=== PATIENT | male | born 1990 | race African-American/Black ===

== ENCOUNTER 2020-04-01 11:05 | Inpatient (IN) | payer SELFPAY ==
[2020-04-01] MEDS ORDERED: Adacel (T-DAP) 0.5 ML SYRINGE ONE (11:26)
[2020-04-01] MEDS ORDERED: Tranexamic Acid 1,000 MG/10 ML VIAL ONE (11:26)
[2020-04-01] MEDS ORDERED: Lidocaine 1% w/Epinephrine 1:100K 20 ML VIAL ONE ×2 (11:26→12:21)
[2020-04-01] MEDS ORDERED: Fentanyl 100 MCG/2 ML VIAL ONE (11:27)
[2020-04-01 11:30] LABS: INR-International Normal Ratio 1.1; PTT 26.5 sec (22.9-36.1); Prothrombin Time 14.1 sec (12.0-14.7)
[2020-04-01 11:33] LABS: Hemoglobin 11.5 g/dL (14.0-18.0); Mean Corpuscular HGB CONC 31.8 g/dL (32.0-36.0); Mean Corpuscular Hemoglobin 27.5 pg (27.0-31.0); Mean Corpuscular Volume 86.4 fL (78.0-98.0); Platelet Count 272 thou/uL (130-400); RBC Distribution Width 13.2 % (11.5-14.5); Red Blood Cell (RBC) Count 4.17 mill/uL (4.70-6.10); White Blood Cell (WBC) Count 26.8 thou/uL (4.8-10.8)
[2020-04-01 11:41] LABS: ALT (SGPT) 7 U/L (8-55); AST (SGOT) 16 U/L (5-34); Albumin 3.4 g/dL (3.5-5.0); Alkaline Phosphatase 70 U/L (40-110); Anion Gap 9 mmol/L (10-20); BUN (Urea Nitrogen) 14 mg/dL (8.9-20.6); Bilirubin, Total 0.3 mg/dL (0.2-1.2); Calc. Creatinine Clearance 0 mL/min (70-130); Calcium 7.5 mg/dL (7.8-10.44); Carbon Dioxide 22 mmol/L (22-29); Chloride 108 mmol/L (98-107); Estimated GFR-MDRD Greater than 90; Globulin 2.4 g/dL (2.4-3.5); Lipase 42 U/L (8-78); Potassium 3.9 mmol/L (3.5-5.1); Protein, Total 5.8 g/dL (6.0-8.3); Sodium 135 mmol/L (136-145)
[2020-04-01 11:51] LABS: Band 10 % (5-11); Lymphocytes 13 % (21-51); MDiff Complete? YES; Monocytes 4 % (0-10); Neutrophil 73 % (42-75); Platelet Morphology Comment Appears Adequate; Polychromasia SLIGHT = 2-3 cells (100X) (0-2/hpf)
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
[2020-04-01 11:53] LABS: Glucose 239 mg/dL (70-105)
--- NOTE | 2020-04-01 11:53 | CT ---
EXAM: CT of the cervical spine without contrast HISTORY: Neck pain COMPARISON: None TECHNIQUE: Multiple contiguous axial images were obtained in a CT of the cervical spine without contr ast. Sagittal and coronal reformats were performed. FINDINGS: The vertebral bodies and intervertebral discs demonstrate normal height and alignment witho ut fracture or subluxation. No degenerative changes are present. No prevertebral soft tissue swelling is seen. The posterior facets are well aligned. Normal alignment of the skull base with the cervical spine is seen. The lung apices and cervical soft tissues are unremarkable. IMPRESSION: No evidence of acute osseous abnormality of the cervical spine.
[2020-04-01 11:57] LABS: Bacteria/HPF None Seen HPF (None Seen); Bilirubin Negative (Negative); Blood, Urine 1+ (Negative); Clarity Clear (Clear); Glucose, Urine (Dipstick) Normal (Negative); Leukocyte Negative Leu/uL (Negative); Nitrite Negative (Negative); Protein, Urine (Dipstick) 20 mg/dL (Neg-Trace); RBC/HPF 21-50 HPF (0-3); Squamous Epithelial None Seen HPF (0-3); Urobilinogen Normal mg/dL (Less than 2); WBC/HPF 0-3 HPF (0-3)
[2020-04-01] MEDS ORDERED: levETIRAcetam 1000 MG/100 ML PREMIX BAG ONE (11:57)
[2020-04-01] MEDS ORDERED: Morphine 4 MG/ML VIAL ONE ×2 (11:59→15:31)
[2020-04-01 12:06] LABS: Actual Bicarbonate (HCO3a) 21.4 mEq/L (22-28); Analyzer IN Cardio ER; Base Excess (BEa) -4.5 mEq/L (-2.0 to +3.0); CO2 Tension 42.2 mmHg (35.0-45.0); Calcium, Ionized (arterial) 1.11 mmol/L (1.12-1.30); Carboxyhemoglobin (COHb) 0.9 gm% (0.0-3.0); Hemoglobin (Hb) 12.4 g/dL (14.0-18.0); O2 Tension (PaO2), arterial 266.8 mmHg (80.0-100.0); Potassium - ABG Lab 3.91 mmol/L (3.70-5.30); Puncture Site RRA; pH, Arterial 7.32 (7.35-7.45)
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
[2020-04-01] MEDS ORDERED: Dextrose 50% Abboject 50 ML SYRINGE SLOW IVP PRN (12:12)
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
--- NOTE | 2020-04-01 12:30 | RAD ---
EXAM: 3 views of the right wrist HISTORY: Wrist pain COMPARISON: None FINDINGS: 3 views of the right wrist shows no evidence of acute fracture or dislocation. No soft tiss ue swelling is seen. No degenerative changes are present. IMPRESSION: No evidence of acute osseous abnormality.
[2020-04-01] MEDS ORDERED: Iopamidol-370 76% 500 ML 1 ML ONE (12:49)
[2020-04-01] MEDS ORDERED: Electrolyte Replacement Protoc 1 EACH EACH FS ONE (14:06)
[2020-04-01] MEDS ORDERED: PHOS-NAK 1 PKT PACK PO PRN ×2 (14:08)
[2020-04-01] MEDS ORDERED: Potassium Chloride 40 MEQ in Sodium Chloride 0.9% 250 ML 250 ML IVPB PRN (14:08)
[2020-04-01] MEDS ORDERED: Magnesium 2 GM/50 ML 2 GM in Premix Bag 1 BAG IVPB PRN (14:08)
[2020-04-01] MEDS ORDERED: Potassium Phosphate 9 MMOL in Sodium Chloride 0.9% 100 ML IVPB PRN (14:08)
[2020-04-01] MEDS ORDERED: Potassium Chloride 40 MEQ in Premix Bag 1 BAG IVPB PRN (14:08)
[2020-04-01] MEDS ORDERED: Potassium Chloride 20 MEQ TAB PO PRN (14:08)
[2020-04-01] MEDS ORDERED: Magnesium Oxide 400 MG TAB PO PRN ×2 (14:08)
[2020-04-01] MEDS ORDERED: Potassium Phosphate 15 MMOL in Sodium Chloride 0.9% 250 ML 250 ML IV PRN (14:08)
[2020-04-01] MEDS ORDERED: CCU ELECTROLYTE REPLACEMENT PROTOCOL FS PRN (14:08)
[2020-04-01] MEDS ORDERED: Potassium Phosphate 12 MMOL in Sodium Chloride 0.9% 250 ML 250 ML IV PRN (14:08)
[2020-04-01 15:00] VITALS: BMI 27.1
[2020-04-01] MEDS: hydrALAZINE 20 MG/ML VIAL SLOW IVP PRN ×2 (15:24→23:04)
[2020-04-01] MEDS ORDERED: Morphine 2 MG/ML SYRINGE SLOW IVP PRN (15:37)
[2020-04-01] MEDS: Acetaminophen 325 MG TAB PO SCH ×2 (16:23→19:39)
[2020-04-01] MEDS: Morphine 4 MG/ML VIAL SLOW IVP PRN (17:43)
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
[2020-04-01] MEDS: traMADol HCl 50 MG TAB PO PRN (18:47)
[2020-04-01] MEDS: traMADol HCl 50 MG TAB PO SCH (19:38)
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
[2020-04-01] MEDS: Famotidine/PF 20 mg/2ml Vial SLOW IVP SCH (21:27)
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
[2020-04-01] MEDS: CEFAZOLIN 1 GM in Sodium Chloride 0.9% 100 ML IVPB SCH (22:05)
[2020-04-01] MEDS: Sodium Chloride 0.9% 1,000 ML IV SCH (22:05)
[2020-04-02] MEDS: traMADol HCl 50 MG TAB PO SCH ×4 (01:15→21:29)
[2020-04-02] MEDS: Acetaminophen 325 MG TAB PO SCH ×4 (01:16→21:30)
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
[2020-04-02 03:55] LABS: #Lymphocytes 1.9 thou/uL (1.20-3.40); #Monocytes 1.1 thou/uL (0.11-0.59); #Neutrophils 12.8 thou/uL (1.40-6.50); %Basophils 0.3 % (0.0-1.0); %Lymphocytes 11.7 % (21.0-51.0); %Neutrophils 80.9 % (42.0-75.0); Mean Corpuscular HGB CONC 33.9 g/dL (32.0-36.0); Mean Corpuscular Hemoglobin 29.1 pg (27.0-31.0); Mean Corpuscular Volume 85.8 fL (78.0-98.0); Mean Platelet Volume 7.9 fL (7.4-10.4); Platelet Count 217 thou/uL (130-400); Red Blood Cell (RBC) Count 3.77 mill/uL (4.70-6.10); White Blood Cell (WBC) Count 15.8 thou/uL (4.8-10.8)
[2020-04-02 04:13] LABS: Anion Gap 13 mmol/L (10-20); BUN (Urea Nitrogen) 10 mg/dL (8.9-20.6); Calc. Creatinine Clearance 193 mL/min (70-130); Calcium 8.5 mg/dL (7.8-10.44); Carbon Dioxide 20 mmol/L (22-29); Chloride 104 mmol/L (98-107); Estimated GFR-MDRD Greater than 90; Glucose 131 mg/dL (70-105); Magnesium 1.5 mg/dL (1.6-2.6); Potassium 3.8 mmol/L (3.5-5.1); Sodium 133 mmol/L (136-145)
[2020-04-02] MEDS: CEFAZOLIN 1 GM in Sodium Chloride 0.9% 100 ML IVPB SCH ×2 (06:33→12:17)
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
[2020-04-02] MEDS ORDERED: Magnesium 2 GM/50 ML 2 GM in Premix Bag 1 BAG IVPB SCH (07:45)
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
[2020-04-02] MEDS: Famotidine/PF 20 mg/2ml Vial SLOW IVP SCH ×2 (08:01→21:30)
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
[2020-04-02 09:36] LABS: Phosphorus 2.7 mg/dL (2.3-4.7)
[2020-04-02] MEDS: Morphine 4 MG/ML VIAL SLOW IVP PRN ×2 (11:24→22:55)
[2020-04-02] MEDS ORDERED: PROPOFOL 200 MG/20 ML VIAL ONE (11:58)
[2020-04-02] MEDS ORDERED: Lidocaine 1% PF 5 ML VIAL ONE (11:58)
[2020-04-02] MEDS ORDERED: Ondansetron PF 4 MG/2 ML Vial ONE (11:58)
[2020-04-02] MEDS ORDERED: Dexamethasone 20 MG/5 ML VIAL ONE (11:58)
[2020-04-02] MEDS ORDERED: Ketorolac Tromethamine 30 MG/ML VIAL ONE (11:58)
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
[2020-04-02] MEDS: CEFAZOLIN 2 GM in Premix Bag 1 BAG IVPB SCH ×2 (13:20→21:30)
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
[2020-04-02] MEDS: hydrALAZINE 20 MG/ML VIAL SLOW IVP PRN (14:11)
[2020-04-02] MEDS ORDERED: Bupivacaine PF 0.5% 30 ML VIAL ONE ×2 (14:38→16:12)
[2020-04-02] MEDS ORDERED: Thrombin 5000 UNITS/5 ML VIAL ONE (14:38)
[2020-04-02] MEDS ORDERED: Neomycin-Polymyxin 1 ML AMP ONE ×4 (14:38→16:32)
[2020-04-02] MEDS ORDERED: Bacitracin Zinc Ointment 30 gm TUBE ONE (14:38)
[2020-04-02] MEDS ORDERED: Midazolam HCl 2 mg/2 ml Vial ONE (15:04)
[2020-04-02] MEDS ORDERED: Fentanyl 250 MCG/5 ML VIAL ONE ×2 (15:04→15:12)
[2020-04-02] MEDS ORDERED: Fentanyl 100 MCG/2 ML VIAL ONE (15:25)
[2020-04-02] MEDS ORDERED: Fentanyl 100 MCG/2 ML VIAL SLOW IVP SCH (15:28)
[2020-04-02] MEDS: Carvedilol 6.25 MG TAB PO SCH (17:00)
[2020-04-02] MEDS ORDERED: HYDROmorphone 2 MG/ML VIAL ONE (17:44)
[2020-04-02] MEDS ORDERED: Promethazine HCl 25 MG/ML VIAL SLOW IVP PRN (19:23)
[2020-04-02] MEDS ORDERED: PACU-Morphine 4MG/ML VIAL SLOW IVP PRN (19:23)
[2020-04-02] MEDS ORDERED: Ondansetron HCl/PF 4 MG/2 ML Vial IVP PRN (19:23)
[2020-04-02] MEDS ORDERED: HYDROmorphone 2 MG/ML VIAL SLOW IVP PRN (19:23)
[2020-04-02] MEDS ORDERED: Promethazine HCl 25 MG/ML VIAL IM PRN (19:23)
[2020-04-02] MEDS: Sodium Chloride 0.9% 1,000 ML IV SCH (21:36)
[2020-04-02] MEDS: traMADol HCl 50 MG TAB PO PRN (22:56)
[2020-04-02] MEDS ORDERED: Carvedilol 6.25 MG TAB PO SCH (23:59)
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
[2020-04-03] MEDS: Acetaminophen 325 MG TAB PO SCH ×2 (03:04→09:00)
[2020-04-03] MEDS: traMADol HCl 50 MG TAB PO SCH ×4 (03:05→20:23)
[2020-04-03 05:40] LABS: Anion Gap 12 mmol/L (10-20); BUN (Urea Nitrogen) 9 mg/dL (8.9-20.6); Calc. Creatinine Clearance 184 mL/min (70-130); Calcium 8.1 mg/dL (7.8-10.44); Carbon Dioxide 19 mmol/L (22-29); Chloride 107 mmol/L (98-107); Estimated GFR-MDRD Greater than 90; Glucose 122 mg/dL (70-105); Phosphorus 2.2 mg/dL (2.3-4.7); Potassium 4.2 mmol/L (3.5-5.1); Sodium 134 mmol/L (136-145)
[2020-04-03 05:42] LABS: #Eosinphils 0.1 thou/uL (0.0-0.7); #Lymphocytes 1.3 thou/uL (1.20-3.40); #Neutrophils 11.6 thou/uL (1.40-6.50); %Eosinophils 0.4 % (0.0-10.0); %Lymphocytes 9.4 % (21.0-51.0); %Neutrophils 83.2 % (42.0-75.0); Hemoglobin 9.2 g/dL (14.0-18.0); Mean Corpuscular HGB CONC 32.4 g/dL (32.0-36.0); Mean Corpuscular Hemoglobin 27.7 pg (27.0-31.0); Mean Corpuscular Volume 85.4 fL (78.0-98.0); Mean Platelet Volume 8.5 fL (7.4-10.4); Platelet Count 121 thou/uL (130-400); Red Blood Cell (RBC) Count 3.32 mill/uL (4.70-6.10)
[2020-04-03] MEDS: CEFAZOLIN 2 GM in Premix Bag 1 BAG IVPB SCH ×3 (06:01→21:40)
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
[2020-04-03] MEDS: Famotidine/PF 20 mg/2ml Vial SLOW IVP SCH (08:54)
[2020-04-03] MEDS: Carvedilol 6.25 MG TAB PO SCH ×2 (08:54→18:13)
[2020-04-03] MEDS ORDERED: Sodium Phosphate 30 MMOL in Sodium Chloride 0.9% 250 ML 250 ML IVPB SCH (09:15)
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
[2020-04-03] MEDS: Acetaminophen 500 MG TAB PO SCH ×3 (11:39→23:29)
[2020-04-03] MEDS: traMADol HCl 50 MG TAB PO PRN ×2 (11:40→20:25)
[2020-04-03] MEDS: Gabapentin 300 MG CAP PO SCH ×2 (14:43→20:23)
[2020-04-03] MEDS: Ibuprofen 800 MG TAB PO SCH ×2 (14:43→21:40)
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
[2020-04-03] MEDS: hydrALAZINE 20 MG/ML VIAL SLOW IVP PRN (21:48)
[2020-04-04] MEDS: traMADol HCl 50 MG TAB PO SCH ×4 (02:25→21:52)
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
[2020-04-04] MEDS: Ibuprofen 800 MG TAB PO SCH ×3 (05:56→21:53)
[2020-04-04] MEDS: CEFAZOLIN 2 GM in Premix Bag 1 BAG IVPB SCH ×3 (05:56→16:57)
[2020-04-04] MEDS: Acetaminophen 500 MG TAB PO SCH ×3 (05:56→17:44)
[2020-04-04] MEDS: hydrALAZINE 20 MG/ML VIAL SLOW IVP PRN ×4 (05:57→21:53)
[2020-04-04] MEDS: Gabapentin 300 MG CAP PO SCH ×3 (08:00→21:52)
[2020-04-04] MEDS: Carvedilol 6.25 MG TAB PO SCH ×2 (08:00→16:57)
[2020-04-04] MEDS ORDERED: Sodium Phosphate 30 MMOL in Sodium Chloride 0.9% 250 ML 250 ML IVPB SCH (09:00)
[2020-04-04] MEDS ORDERED: traMADol HCl 50 MG TAB PO SCH (09:00)
[2020-04-04 10:16] LABS: Anion Gap 18 mmol/L (10-20); BUN (Urea Nitrogen) 9 mg/dL (8.9-20.6); Calc. Creatinine Clearance 191 mL/min (70-130); Calcium 8.6 mg/dL (7.8-10.44); Carbon Dioxide 19 mmol/L (22-29); Chloride 107 mmol/L (98-107); Estimated GFR-MDRD Greater than 90; Glucose 110 mg/dL (70-105); Magnesium 2.1 mg/dL (1.6-2.6); Phosphorus 2.3 mg/dL (2.3-4.7); Potassium 4.7 mmol/L (3.5-5.1); Sodium 139 mmol/L (136-145)
[2020-04-04 11:10] LABS: Band 1 % (5-11); Eosinophils 1 % (0-10); Hemoglobin 8.7 g/dL (14.0-18.0); Lymphocytes 27 % (21-51); MDiff Complete? YES; Mean Corpuscular HGB CONC 32.5 g/dL (32.0-36.0); Mean Corpuscular Hemoglobin 28.3 pg (27.0-31.0); Mean Corpuscular Volume 86.9 fL (78.0-98.0); Mean Platelet Volume 8.4 fL (7.4-10.4); Monocytes 4 % (0-10); Neutrophil 66 % (42-75); Platelet Count 169 thou/uL (130-400); Platelet Morphology Comment Appears Adequate; RBC Distribution Width 12.8 % (11.5-14.5); RBC Morphology Normal; Red Blood Cell (RBC) Count 3.09 mill/uL (4.70-6.10); White Blood Cell (WBC) Count 10.4 thou/uL (4.8-10.8)
--- NOTE | 2020-04-04 12:30 | PDOC.BPN ---
- Brief Progress Note The patient was seen this morning during rounds. He was seated upright in bed with no indications of apparent distress. Patient reported bilateral pain in arms rated a 7 out of 10. He stated his headache is gone, but his neck is bothering him.
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
[2020-04-04] MEDS ORDERED: Carvedilol 25 MG TAB PO SCH (23:58)
[2020-04-05] MEDS: Acetaminophen 500 MG TAB PO SCH ×4 (00:06→20:02)
[2020-04-05] MEDS: CEFAZOLIN 2 GM in Premix Bag 1 BAG IVPB SCH ×3 (00:06→20:01)
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
[2020-04-05] MEDS: traMADol HCl 50 MG TAB PO SCH ×4 (03:57→21:12)
[2020-04-05 06:06] LABS: Band 8 % (5-11); Eosinophils 4 % (0-10); Hemoglobin 9.3 g/dL (14.0-18.0); Lymphocytes 29 % (21-51); MDiff Complete? YES; Mean Corpuscular HGB CONC 33.4 g/dL (32.0-36.0); Mean Corpuscular Hemoglobin 28.8 pg (27.0-31.0); Mean Corpuscular Volume 86.3 fL (78.0-98.0); Mean Platelet Volume 7.8 fL (7.4-10.4); Monocytes 4 % (0-10); Neutrophil 55 % (42-75); Platelet Count 238 thou/uL (130-400); Platelet Morphology Comment Appears Adequate; RBC Distribution Width 12.6 % (11.5-14.5); Red Blood Cell (RBC) Count 3.21 mill/uL (4.70-6.10)
[2020-04-05 06:32] LABS: Anion Gap 13 mmol/L (10-20); BUN (Urea Nitrogen) 8 mg/dL (8.9-20.6); Calc. Creatinine Clearance 196 mL/min (70-130); Calcium 8.6 mg/dL (7.8-10.44); Carbon Dioxide 24 mmol/L (22-29); Chloride 103 mmol/L (98-107); Estimated GFR-MDRD Greater than 90; Glucose 86 mg/dL (70-105); Magnesium 1.9 mg/dL (1.6-2.6); Phosphorus 3.1 mg/dL (2.3-4.7); Potassium 3.7 mmol/L (3.5-5.1); Sodium 136 mmol/L (136-145)
[2020-04-05] MEDS: Ibuprofen 800 MG TAB PO SCH ×3 (07:46→21:12)
[2020-04-05] MEDS ORDERED: Magnesium 2 GM/50 ML 2 GM in Premix Bag 1 BAG IVPB SCH (08:00)
[2020-04-05] MEDS ORDERED: Potassium Phosphate 15 MMOL in Sodium Chloride 0.9% 250 ML 250 ML IVPB SCH (08:00)
[2020-04-05] MEDS: Gabapentin 300 MG CAP PO SCH ×3 (09:10→21:12)
[2020-04-05] MEDS: Amlodipine 10 MG TAB PO SCH (09:13)
[2020-04-05] MEDS ORDERED: Lidocaine 1% PF 5 ML VIAL ONE (11:41)
[2020-04-05] MEDS ORDERED: Ketorolac Tromethamine 30 MG/ML VIAL ONE (11:41)
[2020-04-05] MEDS ORDERED: PHENYLEPHRINE-NS 100 MCG/ML 10 ML SYRINGE ONE (11:41)
[2020-04-05] MEDS ORDERED: PROPOFOL 200 MG/20 ML VIAL ONE (11:41)
[2020-04-05] MEDS ORDERED: Dexamethasone 20 MG/5 ML VIAL ONE (11:41)
[2020-04-05] MEDS ORDERED: Ondansetron PF 4 MG/2 ML Vial ONE (11:41)
[2020-04-05] MEDS ORDERED: Fentanyl 100 MCG/2 ML VIAL ONE (15:43)
[2020-04-05] MEDS ORDERED: Bupivacaine PF 0.5% 30 ML VIAL ONE (15:52)
[2020-04-05] MEDS ORDERED: Betamet Acet/Betamet Na Ph 30 MG/5 ML VIAL ONE (15:52)
[2020-04-05] MEDS ORDERED: Sodium Chloride 0.9% 10 ML ONE (15:52)
[2020-04-05] MEDS ORDERED: Bacitracin Zinc Ointment 30 gm TUBE ONE (15:52)
[2020-04-05] MEDS ORDERED: Thrombin 5000 UNITS/5 ML VIAL ONE (15:52)
[2020-04-05] MEDS ORDERED: Mineral Oil Sterile 10ML 10 ML UDCUP ONE (16:58)
[2020-04-05] MEDS ORDERED: Fentanyl 250 MCG/5 ML VIAL ONE (17:21)
[2020-04-05] MEDS ORDERED: Meperidine HCl/PF 25 MG/ML VIAL SLOW IVP PRN (18:43)
[2020-04-05] MEDS ORDERED: Ketorolac Tromethamine 30 MG/ML VIAL IVP PRN (18:43)
[2020-04-05] MEDS ORDERED: Morphine Sulfate 2 MG/ML SYRINGE SLOW IVP PRN (18:43)
[2020-04-05] MEDS ORDERED: Ondansetron HCl/PF 4 MG/2 ML Vial IVP PRN (18:43)
[2020-04-05] MEDS ORDERED: PACU-Morphine 4MG/ML VIAL SLOW IVP PRN (18:43)
[2020-04-05] MEDS ORDERED: Promethazine HCl 25 MG/ML VIAL IM PRN (18:43)
[2020-04-05] MEDS ORDERED: Promethazine HCl 25 MG/ML VIAL SLOW IVP PRN (18:43)
[2020-04-05] MEDS ORDERED: HYDROmorphone 2 MG/ML VIAL SLOW IVP PRN (18:43)
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
[2020-04-05] MEDS: hydrALAZINE 20 MG/ML VIAL SLOW IVP PRN (21:13)
[2020-04-06] MEDS: CEFAZOLIN 2 GM in Premix Bag 1 BAG IVPB SCH ×2 (01:00→08:31)
[2020-04-06] MEDS: Acetaminophen 500 MG TAB PO SCH ×3 (01:00→11:33)
[2020-04-06] MEDS: traMADol HCl 50 MG TAB PO SCH ×3 (03:53→14:38)
[2020-04-06] MEDS: Ibuprofen 800 MG TAB PO SCH ×2 (06:21→13:59)
[2020-04-06] MEDS: Amlodipine 10 MG TAB PO SCH (08:31)
[2020-04-06] MEDS: Gabapentin 300 MG CAP PO SCH ×2 (08:31→13:59)
[2020-04-06 09:34] LABS: Anion Gap 16 mmol/L (10-20); BUN (Urea Nitrogen) 8 mg/dL (8.9-20.6); Calc. Creatinine Clearance 204 mL/min (70-130); Calcium 8.6 mg/dL (7.8-10.44); Carbon Dioxide 20 mmol/L (22-29); Chloride 105 mmol/L (98-107); Estimated GFR-MDRD Greater than 90; Glucose 113 mg/dL (70-105); Magnesium 1.8 mg/dL (1.6-2.6); Phosphorus 3.4 mg/dL (2.3-4.7); Sodium 137 mmol/L (136-145)
[2020-04-06] MEDS: hydrALAZINE 20 MG/ML VIAL SLOW IVP PRN (09:39)
[2020-04-06] MEDS ORDERED: Magnesium 2 GM/50 ML 2 GM in Premix Bag 1 BAG IVPB SCH (10:00)
[2020-04-06 10:07] LABS: #Basophils 0.1 thou/uL (0.0-0.2); #Eosinphils 0.1 thou/uL (0.0-0.7); #Lymphocytes 2.9 thou/uL (1.20-3.40); #Monocytes 1.2 thou/uL (0.11-0.59); #Neutrophils 12.3 thou/uL (1.40-6.50); %Basophils 0.8 % (0.0-1.0); %Eosinophils 0.7 % (0.0-10.0); %Lymphocytes 17.3 % (21.0-51.0); %Monocytes 7.4 % (0.0-10.0); %Neutrophils 73.8 % (42.0-75.0); Hemoglobin 9.7 g/dL (14.0-18.0); Mean Corpuscular HGB CONC 33.2 g/dL (32.0-36.0); Mean Corpuscular Hemoglobin 28.5 pg (27.0-31.0); Mean Corpuscular Volume 85.9 fL (78.0-98.0); Mean Platelet Volume 6.8 fL (7.4-10.4); Platelet Count 284 thou/uL (130-400); RBC Distribution Width 12.7 % (11.5-14.5); White Blood Cell (WBC) Count 16.6 thou/uL (4.8-10.8)
[2020-04-06 11:18] VITALS: BP 170/78; TEMP 98.6
--- NOTE | 2020-04-06 13:03 | EKG ---
Test Reason : Blood Pressure : / mmHG Vent. Rate : 059 BPM Atrial Rate : 059 BPM P-R Int : 148 ms QRS Dur : 084 ms QT Int : 420 ms P-R-T Axes : 000 048 029 degrees QTc Int : 415 ms Sinus bradycardia Septal infarct , age undetermined Abnormal ECG Confirmed by MARY ELLEN VASQUES DO ([id number]), production editor JERONIMO RENAE ([id number] on 04/06/2020 1:03:03 PM Referred By: Confirmed By:MARY ELLEN VASQUES DO
[2020-04-06] MEDS ORDERED: Clindamycin 150 MG CAP PO SCH (13:30)
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
== END 2020-04-06 14:40 | disposition home or self-care (01) | DRG 957 ==
LOC: EEVIPCON 11:05 → EDBD 11:05 → ERS 11:05 → CCU 12:19 → SJJU 04-02 20:23
PROVIDERS: ADMIT Surgery; ATTEND Surgery
PROC: 0HQ0XZZ Repair Scalp Skin, External Approach (ICD-10-PCS; principal; 2020-04-01)
PROC: 0PS Upper Bones, Reposition (ICD-10-PCS; 2020-04-02)
PROC: 0PSN04Z Reposition Left Carpal with Internal Fixation Device, Open Approach (ICD-10-PCS; 2020-04-02)
PROC: 01Q60ZZ Repair Radial Nerve, Open Approach (ICD-10-PCS; 2020-04-02)
PROC: 8E0XXBZ Computer Assisted Procedure of Upper Extremity (ICD-10-PCS; 2020-04-02)
PROC: 0KBB0ZZ Excision of Left Lower Arm and Wrist Muscle, Open Approach (ICD-10-PCS; 2020-04-02)
PROC: 0KB80ZZ Excision of Left Upper Arm Muscle, Open Approach (ICD-10-PCS; 2020-04-02)
PROC: 0PSK04Z Reposition Right Ulna with Internal Fixation Device, Open Approach (ICD-10-PCS; 2020-04-02)
DX: S52.001B Unspecified fracture of upper end of right ulna, initial encounter for open fracture type I or II (principal); S06.6X0A Traumatic subarachnoid hemorrhage without loss of consciousness, initial encounter; G93.6 Cerebral edema; S02.0XXB Fracture of vault of skull, initial encounter for open fracture; S27.321A Contusion of lung, unilateral, initial encounter; S62.002B Unspecified fracture of navicular [scaphoid] bone of left wrist, initial encounter for open fracture; S62.172B Displaced fracture of trapezium [larger multangular], left wrist, initial encounter for open fracture; S62.611B Displaced fracture of proximal phalanx of left index finger, initial encounter for open fracture; S66.121A Laceration of flexor muscle, fascia and tendon of left index finger at wrist and hand level, initial encounter; S66.321A Laceration of extensor muscle, fascia and tendon of left index finger at wrist and hand level, initial encounter; S55.112A Laceration of radial artery at forearm level, left arm, initial encounter; X95.9XXA Assault by unspecified firearm discharge, initial encounter; R40.2362 Coma scale, best motor response, obeys commands, at arrival to emergency department; R40.2142 Coma scale, eyes open, spontaneous, at arrival to emergency department; R40.2252 Coma scale, best verbal response, oriented, at arrival to emergency department; S01.01XA Laceration without foreign body of scalp, initial encounter; S51.042A Puncture wound with foreign body of left elbow, initial encounter; S51.842A Puncture wound with foreign body of left forearm, initial encounter; I51.7 Cardiomegaly; I10 Essential (primary) hypertension
CPT/HCPCS: 12002; 36415; 36416; 51702; 70450; 71045; 71260; 72125; 74177; 76000; 80048; 80053; 81003; 81015; 82805; 83690; 83735; 84100; 85007; 85025; 85027; 85610; 85730; 86850; 86900; 86901; 90471; 90715; 93005; 94760; 96365; 96366; 96374; 96375; 99292; C1713; G0390; J0360; J0690; J0702; J1100; J1170; J1885; J1953; J2001; J2250; J2270; J2405; J2704; J3010; J3475; J3490; J7050; Q9967; S0020; S0028

== ENCOUNTER 2020-04-18 05:40 | Outpatient (CLI) | payer OTHER ==
[2020-04-18 16:17] LABS: Hemoglobin 10.3 g/dL (14.0-18.0); Mean Corpuscular HGB CONC 32.3 g/dL (32.0-36.0); Mean Corpuscular Hemoglobin 28.3 pg (27.0-31.0); Mean Corpuscular Volume 87.5 fL (78.0-98.0); Mean Platelet Volume 7.2 fL (7.4-10.4); Platelet Count 501 thou/uL (130-400); RBC Distribution Width 14.3 % (11.5-14.5); Red Blood Cell (RBC) Count 3.62 mill/uL (4.70-6.10); White Blood Cell (WBC) Count 8.6 thou/uL (4.8-10.8)
[2020-04-19 15:41] LABS: SARS-CoV-2 MS2 Positive; SARS-CoV-2 N Gene Negative; SARS-CoV-2 S Gene Negative; SARS-CoV-2 orf1ab Negative
== END 2020-04-18 05:41 | disposition home or self-care (01) ==
LOC: LABBT 05:40
PROVIDERS: ATTEND Orthopaedic Surgery Hand Surgery
DX: Z01.812 Encounter for preprocedural laboratory examination (principal); Z11.59 Encounter for screening for other viral diseases; T14.8XXA Other injury of unspecified body region, initial encounter; S62.611A Displaced fracture of proximal phalanx of left index finger, initial encounter for closed fracture; S62.012A Displaced fracture of distal pole of navicular [scaphoid] bone of left wrist, initial encounter for closed fracture; S62.172A Displaced fracture of trapezium [larger multangular], left wrist, initial encounter for closed fracture; S56.429A Laceration of extensor muscle, fascia and tendon of unspecified finger at forearm level, initial encounter
CPT/HCPCS: 85027; 87635; U0003

== ENCOUNTER 2020-04-22 15:03 | Outpatient (CLI) | payer BC, OTHER ==
[2020-04-22 18:12] LABS: Hemoglobin 10.8 g/dL (14.0-18.0); Mean Corpuscular HGB CONC 32.4 g/dL (32.0-36.0); Mean Corpuscular Hemoglobin 28.8 pg (27.0-31.0); Mean Corpuscular Volume 88.9 fL (78.0-98.0); Mean Platelet Volume 7.4 fL (7.4-10.4); Platelet Count 394 thou/uL (130-400); RBC Distribution Width 14.4 % (11.5-14.5); Red Blood Cell (RBC) Count 3.74 mill/uL (4.70-6.10); White Blood Cell (WBC) Count 8.1 thou/uL (4.8-10.8)
[2020-04-23 13:12] LABS: SARS-CoV-2 MS2 Positive; SARS-CoV-2 N Gene Negative; SARS-CoV-2 S Gene Negative; SARS-CoV-2 orf1ab Negative
== END 2020-04-22 15:04 | disposition home or self-care (01) ==
LOC: LABBT 15:03
PROVIDERS: ATTEND Orthopaedic Surgery Hand Surgery
DX: Z01.812 Encounter for preprocedural laboratory examination (principal); Z11.59 Encounter for screening for other viral diseases; S62.611G Displaced fracture of proximal phalanx of left index finger, subsequent encounter for fracture with delayed healing; S62.012 Displaced fracture of distal pole of navicular [scaphoid] bone of left wrist; S62.17 Fracture of trapezium [larger multangular]; S61.402A Unspecified open wound of left hand, initial encounter
CPT/HCPCS: 85027; 87635; U0003

== ENCOUNTER 2020-04-24 12:22 | Observation (INO) | payer BC, OTHER ==
[2020-04-15 14:48] VITALS: BMI 27.7
[~2020-04-24 12:22] MED LIST: Lidocaine 1% PF 5 ML VIAL ONE; PHENYLEPHRINE-NS 100 MCG/ML 10 ML SYRINGE ONE; PROPOFOL 200 MG/20 ML VIAL ONE
[2020-04-24] MEDS ORDERED: Bacitracin Zinc Ointment 30 gm TUBE ONE (13:23)
[2020-04-24] MEDS ORDERED: Betamet Acet/Betamet Na Ph 30 MG/5 ML VIAL ONE (13:23)
[2020-04-24] MEDS ORDERED: Bupivacaine PF 0.5% 30 ML VIAL ONE (13:23)
[2020-04-24] MEDS ORDERED: Fentanyl 100 MCG/2 ML VIAL ONE ×2 (14:00→15:43)
[2020-04-24] MEDS ORDERED: Midazolam HCl 2 mg/2 ml Vial ONE (14:10)
[2020-04-24] MEDS ORDERED: HYDROmorphone 2 MG/ML VIAL ONE ×2 (16:45→19:01)
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
[2020-04-24] MEDS ORDERED: Sterile Water 0 ML ONE (18:59)
[2020-04-24] MEDS ORDERED: CEFAZOLIN 1 GM VIAL ONE (18:59)
[2020-04-24] MEDS ORDERED: Acetaminophen 325 MG TAB PO PRN (20:42)
[2020-04-24] MEDS ORDERED: Ondansetron PF 4 MG/2 ML Vial IV PRN (20:42)
[2020-04-24] MEDS ORDERED: Promethazine HCl 25 MG/ML VIAL IM PRN (20:42)
[2020-04-24] MEDS ORDERED: traMADol HCl 50 MG TAB PO PRN (20:42)
[2020-04-24] MEDS ORDERED: Fentanyl 100 MCG/2 ML VIAL SLOW IVP PRN (20:42)
[2020-04-24] MEDS ORDERED: Morphine 4 MG/ML VIAL SLOW IVP PRN (20:42)
[2020-04-24] MEDS ORDERED: HYDROcodone/Acetaminophen 5/325 mg Tablet PO PRN (20:42)
[2020-04-24] MEDS ORDERED: HYDROcodone/Acetaminophen 10/325 mg Tablet PO PRN (20:42)
[2020-04-24] MEDS ORDERED: Ketorolac Tromethamine 30 MG/ML VIAL ONE (20:45)
[2020-04-24] MEDS ORDERED: RENALLY ADJUST ALL ANTIBIOTICS FS SCH (20:45)
[2020-04-24] MEDS: Aspirin 81 mg Enteric Coated Tablet PO SCH (22:25)
[2020-04-25] MEDS: Ketorolac Tromethamine 30 MG/ML VIAL IVP SCH ×4 (00:32→17:49)
[2020-04-25] MEDS ORDERED: traMADol HCl 50 MG TAB PO PRN (03:01)
[2020-04-25] MEDS: Clindamycin 150 MG CAP PO SCH ×2 (05:07→14:24)
[2020-04-25] MEDS: Ibuprofen 800 MG TAB PO SCH ×2 (05:07→14:24)
[2020-04-25] MEDS: Acetaminophen 500 MG TAB PO SCH ×3 (05:07→17:50)
[2020-04-25 06:36] LABS: Hemoglobin 11.2 g/dL (14.0-18.0); Mean Corpuscular HGB CONC 30.4 g/dL (32.0-36.0); Mean Corpuscular Hemoglobin 26.9 pg (27.0-31.0); Mean Corpuscular Volume 88.3 fL (78.0-98.0); Mean Platelet Volume 7.7 fL (7.4-10.4); Platelet Count 297 thou/uL (130-400); RBC Distribution Width 14.2 % (11.5-14.5); Red Blood Cell (RBC) Count 4.18 mill/uL (4.70-6.10); White Blood Cell (WBC) Count 17.4 thou/uL (4.8-10.8)
[2020-04-25 06:49] LABS: Band 5 % (5-11); Lymphocytes 12 % (21-51); MDiff Complete? YES; Monocytes 5 % (0-10); Neutrophil 78 % (42-75)
[2020-04-25] MEDS: Gabapentin 300 MG CAP PO SCH ×2 (08:55→14:24)
[2020-04-25] MEDS: Aspirin 81 mg Enteric Coated Tablet PO SCH (08:55)
[2020-04-25] MEDS ORDERED: TETANUS AND DIPHTHERIA TOX/PF 0.5 ML DISP.SYRIN IM SCH (09:00)
[2020-04-25] MEDS ORDERED: Amlodipine 10 MG TAB PO SCH (09:00)
[2020-04-25] MEDS ORDERED: diphenhydrAMINE 25 MG CAP PO PRN (09:06)
[2020-04-25 16:36] VITALS: BP 161/81; TEMP 98.3
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
== END 2020-04-25 18:56 | disposition home or self-care (01) ==
LOC: SDC 12:22 → SURG B 21:57
PROVIDERS: ADMIT Orthopaedic Surgery Hand Surgery; ATTEND Orthopaedic Surgery Hand Surgery
PROC: 0PSV04Z Reposition Left Finger Phalanx with Internal Fixation Device, Open Approach (ICD-10-PCS; principal; 2020-04-24)
PROC: 0PBJ0ZZ Excision of Left Radius, Open Approach (ICD-10-PCS; 2020-04-24)
PROC: 01Q40ZZ Repair Ulnar Nerve, Open Approach (ICD-10-PCS; 2020-04-24)
PROC: 0PSN04Z Reposition Left Carpal with Internal Fixation Device, Open Approach (ICD-10-PCS; 2020-04-24)
PROC: 0LU607Z Supplement Left Lower Arm and Wrist Tendon with Autologous Tissue Substitute, Open Approach (ICD-10-PCS; 2020-04-24)
DX: S62.611B Displaced fracture of proximal phalanx of left index finger, initial encounter for open fracture (principal); S64.491A Injury of digital nerve of left index finger, initial encounter; S66.309A Unspecified injury of extensor muscle, fascia and tendon of unspecified finger at wrist and hand level, initial encounter; S62.172B Displaced fracture of trapezium [larger multangular], left wrist, initial encounter for open fracture; S62.012A Displaced fracture of distal pole of navicular [scaphoid] bone of left wrist, initial encounter for closed fracture; G43.909 Migraine, unspecified, not intractable, without status migrainosus; I51.7 Cardiomegaly; Z79.899 Other long term (current) drug therapy; W34.00XA Accidental discharge from unspecified firearms or gun, initial encounter
CPT/HCPCS: 36415; 85025; 96374; 96376; C1713; G0378; J0690; J0702; J1170; J1885; J2250; J2704; J3010; J3490; Q0163; S0020

== ENCOUNTER 2023-03-02 10:34 | Emergency (ER) | payer BC, SELFPAY ==
[2023-03-02] MEDS ORDERED: Lidocaine 1% PF 5 ML VIAL ONE (11:25)
[2023-03-02] MEDS ORDERED: Lidocaine 1% w/Epinephrine 1:100K 20 ML VIAL ONE (11:27)
== END 2023-03-02 12:09 | disposition home or self-care (01) ==
LOC: ERS 10:34
DX: L02.212 Cutaneous abscess of back [any part, except buttock and flank] (principal); L03.114 Cellulitis of left upper limb
CPT/HCPCS: 10120